=== PATIENT | female | born 1970 | race Asian ===

== ENCOUNTER 2016-10-14 10:46 | Emergency (ER) | payer MEDICAID ==
[~2016-10-14] VITALS: Ht 162.6 cm; Wt 72.6 kg
[~2016-10-14 10:46] MED LIST: CLON0.5T3 PO; GABA-494 PO; GLIM2TAB PO; INSLANTI SC; LISI-646 PO; METF-370 PO; PAXIL PO; PIOG15TA38 PO
[2016-10-14 11:46] LABS: Basophils # (auto) 0 uL; Basophils % (auto) 0.1 % (0.0-2.0); CONDITION Y; DEFINITIVE SEE PRINTOUT; Eosinophils # (auto) 0.4 uL; Eosinophils % (auto) 3.7 % (0.0-7.0); Hematocrit 40.9 % (36.0-46.0); Hemoglobin 13.8 g/dL (12.2-16.2); Lymphocytes # (auto) 1.5 uL; Lymphocytes % (auto) 12.9 % (10.0-50.0); Mean Corpuscular Hemoglobin 25.4 pg (28.0-32.0); Mean Corpuscular Hgb Conc. 33.8 g/dL (32.0-36.0); Mean Corpuscular Volume 74.9 fL (80.0-100.0); Mean Platelet Volume 7.1 fL (7.4-10.4); Monocytes # (auto) 0.3 uL; Monocytes % (auto) 2.9 % (0.0-12.0); Neutrophils # (auto) 9.5 uL; Neutrophils % (auto) 80.4 % (37.0-80.0); Platelet Count (auto) 544 10^3/uL (140-450); White Blood Cell 11.8 10^3/uL (4.4-10.8)
[2016-10-14 12:04] LABS: Albumin 3.4 g/dL (3.4-5.0); BUN/Creatinine Ratio 17.8; Bilirubin, Total 0.1 mg/dL (0.2-1.0); Calcium 9.3 mg/dL (8.5-10.1); Potassium 4.4 mmol/L (3.5-5.1); Total Protein 8.7 g/dL (6.4-8.2)
[2016-10-14 12:36] LABS: Urine Bilirubin Negative (Negative); Urine Blood 1+ /uL (Negative); Urine Color Yellow (Yellow); Urine Glucose 4+ mg/dL (Normal); Urine Ketone Negative (Negative); Urine Nitrite Negative (Negative); Urine RBC 3 /hpf (0 - 4); Urine Squamous Epithelial Cell FEW /hpf (<5); Urine Urobilinogen Normal (Negative); Urine pH 6.5 (5.0-8.0)
[2016-10-14] MEDS ORDERED: METOCLOPRAMIDE HCL 5MG/ml INJ 2ml VIAL IV ONE (13:15)
[2016-10-14] MEDS ORDERED: SODIUM CHLORIDE 0.9% 1,000 ML IV ONE (13:15)
[2016-10-14] MEDS ORDERED: cefTRIAXone 1GM/50ML D5W 50 ML IV ONE ×2 (13:30)
[2016-10-14] MEDS ORDERED: KETOROLAC TROMETH 30 MG/ML 1ML VIAL IV ONE (15:00)
[2016-10-14 15:11] VITALS: BP 133/85
== END 2016-10-14 15:15 | disposition home or self-care (01) ==
LOC: ER 10:46
DX: N20.0 Calculus of kidney (principal); H66.92 Otitis media, unspecified, left ear; E11.9 Type 2 diabetes mellitus without complications; F17.210 Nicotine dependence, cigarettes, uncomplicated; I10 Essential (primary) hypertension; Z87.442 Personal history of urinary calculi; Z87.440 Personal history of urinary (tract) infections; Z79.899 Other long term (current) drug therapy
CPT/HCPCS: 36415; 74176; 80053; 81001; 81025; 82962; 84484; 85025; 96365; 96375; 99285; J0696; J1885; J2765; J7030

== ENCOUNTER 2017-10-30 12:55 | Emergency (ER) | payer SELFPAY ==
[~2017-10-30] VITALS: Ht 162.6 cm; Wt 74.8 kg
[~2017-10-30 12:55] MED LIST changes: +CLON0.5T10 PO; -CLON0.5T3 PO; -GABA-494 PO; +GABA100C9 PO
[2017-10-30 14:51] LABS: Urine Bacteria FEW /hpf (None Seen); Urine Blood Negative /uL (Negative); Urine Specific Gravity 1.017 (1.001-1.035); Urine WBC 27 /hpf (0 - 5)
[2017-10-30] MEDS ORDERED: cefTRIAXone W LIDOCAINE 1 GM IM IM ONE (15:30)
[2017-10-30] MEDS ORDERED: cefTRIAXone SOD 1,000 MG VL IM ONE (15:45)
[2017-10-30 16:13] VITALS: BP 143/89
== END 2017-10-30 16:29 | disposition home or self-care (01) ==
LOC: ER 12:55
DX: N39.0 Urinary tract infection, site not specified (principal); E11.9 Type 2 diabetes mellitus without complications; I10 Essential (primary) hypertension; F17.210 Nicotine dependence, cigarettes, uncomplicated; F12.10 Cannabis abuse, uncomplicated
CPT/HCPCS: 81001; 96372; 99283; J0696